=== PATIENT | male | born 1955 | race Caucasian/White ===

== ENCOUNTER → 2021-11-02 | Day surgery (SDC) | payer OTHER ==
[~2021-11-02] MED LIST: ASPIRIN81 MG PO; ATORVASTATIN CA80 MG PO; CARVEDILOL6.25 MG PO; CLOPIDOGREL75 MG PO; COLACE100 MG PO; CYMBALTA60 MG PO; DEPAKOTE125 MG PO; DULOXETINE HCL60 MG PO; FLONASE 0.05% N16 GM; HYDRALAZINE HCL25 MG PO; HYDROCODON-ACE1 EAC6 PO; INDERAL TAB 2020 MG PO; KATERZIA1 MG/1 ML PO; LEVOTHYROXINE100 MCG PO; LORATADINE10 MG PO; MIRTAZAPINE30 MG PO; PERCOCET 5/325 T1 EA PO; PLAVIX75 MG PO; SYMBICORT 16010.2 GM INH
[2021-11-02 07:16] LABS: HEMOGLOBIN 12.6 gm/dl (14.0-17.5); RED BLOOD COUNT 4.49 M/UL (4.20-5.50); WHITE BLOOD COUNT 8.2 K/UL (4.5-11.0)
[2021-11-02 07:34] LABS: BUN/CREATININE RATIO 12 (0-10)
== END | disposition home or self-care (01) ==
LOC: OR 06:26
PROVIDERS: Orthopaedic Surgery
DX: S42.032A Displaced fracture of lateral end of left clavicle, initial encounter for closed fracture (principal); W19.XXXA Unspecified fall, initial encounter; J44.9 Chronic obstructive pulmonary disease, unspecified; I25.10 Atherosclerotic heart disease of native coronary artery without angina pectoris; E78.5 Hyperlipidemia, unspecified; E03.9 Hypothyroidism, unspecified; F17.210 Nicotine dependence, cigarettes, uncomplicated; Z95.5 Presence of coronary angioplasty implant and graft; Z79.82 Long term (current) use of aspirin; Z79.899 Other long term (current) drug therapy
CPT/HCPCS: 71045; 73000; 76000; 80048; 83036; 85027; 93005; 94664; C1713; J0690; J2405; J2704; J2710; J2795; J3010